=== PATIENT | female | born 1985 | race Caucasian/White ===

== ENCOUNTER 2016-10-02 08:58 | Day surgery (SDC) | payer BC ==
[~2016-10-02 08:58] MED LIST: Buffered Lidocaine 0.9% SYRIN* 5 ML/SYR SYRINGE INTRADERM ONE; Famotidine IV* 10 MG/ML 2 ML (20 mg) IV ONE
[2016-10-02] MEDS ORDERED: Buffered Lidocaine 0.9% SYRIN* 5 ML/SYR SYRINGE ONE (09:42)
[2016-10-02] MEDS ORDERED: Famotidine IV* 10 MG/ML 2 ML (20 mg) ONE (09:42)
[2016-10-02] MEDS ORDERED: Midazolam* 1 MG/ML 5 ML VIAL (5 MG) ONE (09:46)
[2016-10-02] MEDS ORDERED: fentaNYL* 50 MCG/ML 2 ML VIAL (100 MCG VIAL) ONE (09:46)
[2016-10-02 10:02] LABS: Manual Entry Verification HAN0055; UR Preg Internal Control QC Line Present
[2016-10-02 10:14] LABS: Hemoglobin 11.8 g/dl (12.0-16.0); Mean Corpuscular HGB Conc 33 g/dl (31-36); Mean Corpuscular Volume 84 fL (80-97); Red Blood Count 4.28 10^6/ul (4.0-5.4)
[2016-10-02 10:21] LABS: Hematocrit 36 % (35-47); Mean Corpuscular Hemoglobin 28 pg (27-31); Mean Platelet Volume 9 um3 (7.4-10.4); Red Cell Distribution Width 15 % (10.5-15); White Blood Count 9.3 10^3/ul (3.5-10.8)
[2016-10-02] MEDS ORDERED: Iodine Strong (LUGOL'S)* 14 ML BTL ONE (10:22)
[2016-10-02] MEDS ORDERED: Ferric Subsulfate* 8 ML BTL ONE (10:22)
[2016-10-02 10:25] LABS: Comments Flag Yes
[2016-10-02] MEDS ORDERED: Acetic Acid 0.25%* 250 ML BTL ONE (10:30)
[2016-10-02] MEDS ORDERED: Propofol* 10 MG/ML 20 ML BTL IV PUSH ONE (10:46)
[2016-10-02] MEDS ORDERED: Ondansetron INJ* 2 MG/ML VIAL ONE (10:46)
[2016-10-02] MEDS ORDERED: Lidocaine 2% PF * 5 ML VIAL ONE (10:46)
[2016-10-02] MEDS ORDERED: DiMENhydriNATE IV* 50 MG/ML VIAL ONE (10:46)
[2016-10-02] MEDS ORDERED: Ketorolac INJ* 30 MG/ML 1 ML VIAL ONE (10:46)
[2016-10-02] MEDS ORDERED: Dexamethasone IV* 4 MG/ML 1 ML (4 MG) ONE (10:46)
[2016-10-02] MEDS ORDERED: oxyCODONE TAB* 5 MG TAB PO PRN (10:52)
[2016-10-02] MEDS ORDERED: Acetaminophen TAB* 325 MG PO PRN (10:52)
[2016-10-02] MEDS ORDERED: DiMENhydriNATE IV* 50 MG/ML VIAL IV PUSH PRN (10:52)
[2016-10-02] MEDS ORDERED: Ibuprofen TAB* 600 MG PO PRN (11:33)
[2016-10-02] MEDS ORDERED: oxyCODONE/Acetamin 5/325 MG* TAB PO PRN ×2 (11:33→11:35)
[2016-10-02] MEDS ORDERED: oxyCODONE TAB* 5 MG TAB ONE (11:39)
[2016-10-02 12:27] VITALS: BP 142/88
--- NOTE | 2016-10-02 22:14 | OP ---
DATE OF OPERATION: 10/02/16 [facility] DATE OF : 85 SURGEON: Diaz Islas MD ANESTHESIOLOGIST: Dr. Rangel. ANESTHESIA: General endotracheal anesthesia. PRE-OP DIAGNOSIS: Cervical dysplasia. POST-OP DIAGNOSIS: Cervical dysplasia. OPERATIVE PROCEDURE: Colposcopy, Restrepo cone biopsy, endocervical curettage. FINDINGS: Midline cervix, acetowhite changes at 4 o'clock. No abnormal vessels seen. COMPLICATIONS: None. COUNTS: Sponge count correct x2. CONDITION: The patient tolerated the procedure well and was brought to recovery room, awake and in stable condition. DESCRIPTION OF PROCEDURE: The patient was brought to the operating room. Urine test was negative. When general anesthesia was found to be adequate, the patient was prepped and draped in the usual sterile fashion in the dorsal lithotomy position. No Betadine was used in the prep. Colposcopy was performed with the above findings noted. The Restrepo cone biopsy size medium was used, the initial specimen was from 12 o'clock to 3 o'clock, the next specimen was from 3 o'clock back to 12 o'clock, and the third specimen was endocervical curettage. Excellent hemostasis was achieved with Monsel solution. Cervix was observed. There was no further bleeding. The coated speculum was removed from the vagina and the patient was brought to the recovery room, awake and in stable condition. [id number] #: [id number] MTDD
== END 2016-10-02 12:28 | disposition home or self-care (01) ==
LOC: OR 08:58
PROVIDERS: ATTEND Obstetrics & Gynecology
DX: D06.9 Carcinoma in situ of cervix, unspecified (principal); J45.909 Unspecified asthma, uncomplicated; E66.01 Morbid (severe) obesity due to excess calories
CPT/HCPCS: 36415; 81025; 85025; 86850; 86900; 86901; 88305; 88307; A9270-GY; J1100; J1240; J1885; J2250; J2405; J2704; J3010